=== PATIENT | male | born 1995 | race African-American/Black ===

== ENCOUNTER 2018-10-25 16:05 | Emergency (ER) | payer OTHER ==
[2018-10-25] MEDS ORDERED: CEFAZOLIN SODIUM 1 GM/VIAL ONE (16:19)
[2018-10-25] MEDS ORDERED: CEPHALEXIN 250 MG CAP ONE (16:20)
[2018-10-25] MEDS ORDERED: WATER FOR INJ,STERILE 10 ML ONE (16:20)
--- NOTE | 2018-10-25 16:42 | RAD REPORT ---
EXAM DESCRIPTION: CT - [id number] - 10/25/2018 4:32 pm CLINICAL HISTORY: Trauma, head and neck injury. PAIN COMPARISON: No comparisons TECHNIQUE: Axial 5 mm thick images of the head were obtained. Axial 2 mm thick images of the cervical spine were obtained with sagittal and coronal reconstruction images generated and reviewed. All CT scans are performed using dose optimization technique as appropriate and may include automated exposure control or mA/KV adjustment according to patient size. FINDINGS: CT HEAD WITHOUT CONTRAST: No acute hemorrhage, hydrocephalus or extra-axial collection is identified.No areas of brain edema or midline shift. The paranasal sinuses and mastoids are clear.The calvarium is intact. CT CERVICAL SPINE WITHOUT CONTRAST: No fracture or subluxation.No prevertebral soft tissues swelling is identified. IMPRESSION: No acute intracranial or cervical spine findings.
[2018-10-25] MEDS ORDERED: LIDOCAINE 2% MPF 5 ML VIAL ONE (16:49)
--- NOTE | 2018-10-25 17:39 | ER ---
Nurse's Notes [facility] Name: Emmett Hilario Age: 22 yrs Sex: Male : 1995 Arrival Date: 10/25/2018 Time: 16:06 Bed 5 Private MD: Diagnosis: Laceration without foreign body of left ear;Strain of muscle, fascia and tendon at neck level;Superficial injury of head Presentation: 10/25 16:08 Presenting complaint: EMS states: pt was working out in his long-term cell when the door to sg the cell began closing, trapping his neck in between the door and the door frame. Intermediate cell door is operated manually with a lilli system, pt reports having his neck stuck in the door for several minutes, denied LOC or difficulty breathing, reports pain in the neck and the left shoulder. Care prior to arrival: Cervical collar in place. Mechanism of Injury: entrapment between door frame and door for several minutes. Trauma event details: Injury occurred in the [facility], Injury occurred: in an institution. Injury occurred: October 25, 2018. 16:08 Acuity: FLIP 3 sg 16:08 Method Of Arrival: EMS: [facility] sg 16:45 Presenting complaint: laceration sustained to left side of face, maybe the ear. sg 18:53 Transition of care: patient was not received from another setting of care. Onset of rv symptoms was October 25, 2018 at 16:00. Risk Assessment: Do you want to hurt yourself or someone else? Patient reports no desire to harm self or others. Initial Sepsis Screen: Does the patient meet any 2 criteria? No. Patient's initial sepsis screen is negative. Does the patient have a suspected source of infection? No. Patient's initial sepsis screen is negative. Trauma Activation: Not Applicable Physician: ED Physician; Name: ; Notified At: ; Arrived At: Physician: General Surgeon; Name: ; Notified At: ; Arrived At: Physician: Radiology; Name: ; Notified At: ; Arrived At: Physician: Respiratory; Name: ; Notified At: ; Arrived At: Physician: Lab; Name: ; Notified At: ; Arrived At: Historical: - Allergies: 16:07 No Known Allergies; sg - Home Meds: 16:07 None [Active]; sg - PMHx: 16:07 None; sg - PSHx: 16:07 None; sg - Immunization history: Last tetanus immunization: - up to date. - Social history:: Smoking status: unknown. - Ebola Screening: : No symptoms or risks identified at this time. Screenin:08 Abuse screen: Denies threats or abuse. Denies injuries from another. Tuberculosis sg screening: Never had TB. Risk factors: [facility]. 18:54 Nutritional screening: No deficits noted. Fall Risk None identified. rv Primary Survey: 16:09 NO uncontrolled hemorrhage observed. A: The patient is alert. Airway: patent, No sg supplemental oxygen in use on arrival. Breathing/Chest: Respiratory pattern: regular, Respiratory effort: spontaneous, unlabored, Breath sounds: clear, Chest inspection: symmetrical rise and fall of the chest. Circulation: Cardiac rhythm: sinus rhythm Heart tones present. Pulses: palpable right radial artery and left radial artery. Skin color: pink, Skin temperature: warm, dry. Disability Alert. Exposure/Environment: All clothing and personal items were removed. Forensic evidence collection is not deemed to be indicated at this time. Items placed in patient belonging bag. There is no evidence of uncontrolled external bleeding. Obvious injury(ies) are noted at this time: neck pain, and left shoulder pain A warming method has been applied: A warm blanket has been provided to the patient. 18:53 Reassessment Airway Airway Patent Breathing/Chest Respiratory pattern Regular. rv Secondary Survey: 16:13 HEENT: Head No injury/deformity Face No injury/deformity Eyes: No injury or deformity sg noted. Ears: clear bilaterally. Nose: clear to bilateral nares. Throat: is clear. Gastrointestinal: Abdomen is flat, non-distended. : No signs and/or symptoms were reported regarding the genitourinary system. Musculoskeletal: Circulation, motion, and sensation intact. Range of motion: intact in all extremities, Swelling absent. Assessment: 16:15 General: Appears in no apparent distress. well groomed, well developed, well nourished, sg Behavior is calm, cooperative, appropriate for age. Pain: Complains of pain in neck Quality of pain is described as tender. Neuro: Level of Consciousness is awake, alert, obeys commands, Oriented to person, place, time, Career Guidance Counselor are equal bilaterally Moves all extremities. Full function Speech is normal, Facial symmetry appears normal. Cardiovascular: Patient's skin is warm and dry. Chest pain is denied. Respiratory: Airway is patent Respiratory effort is even, unlabored, Respiratory pattern is regular, symmetrical. GI: Abdomen is flat, non-distended, Reports tolerance of fluids, tolerance of food. : No signs and/or symptoms were reported regarding the genitourinary system. EENT: Ear canal clear on right ear and left ear Nares are clear bilaterally Oral mucosa is moist. Throat is clear. Derm: Skin is pink, warm \T\ dry. Musculoskeletal: Circulation, motion, and sensation intact. C-Collar in place that was applied CAFETERIA OPERATOR by EMS. 16:44 Injury Description: Laceration sustained to left ear lobe and left preauricular area is sg contaminated, superficial, 0.5 to 2.5 cm long, not bleeding, was sustained 30-60 minutes ago. a small amount of bleeding noted at this time. 17:10 Reassessment: Patient appears in no apparent distress at this time. Patient and/or sg family updated on plan of care and expected duration. Pain level reassessed. Patient is alert, oriented x 3, equal unlabored respirations, skin warm/dry/pink. awaiting ERP for laceration repair, awaiting radiology results prior to removal of C-Collar, pt stated understanding, two guards remain at bedside with pt at this time. 17:44 Reassessment: to repair laceration prior to dc to long-term as ordered. sg Vital Signs: 16:08 BP 148 / 94; Pulse 100; Resp 18; Pulse Ox 100% on R/A; sg 16:08 Temp 98.2; sg 17:08 BP 136 / 88; Pulse 87; Resp 17; Pulse Ox 99% on R/A; sg 18:55 BP 133 / 86; Pulse 86; Resp 16; Temp 98; Pulse Ox 100% on R/A; rv Beverly Coma Score: 16:08 Eye Response: spontaneous(4). Verbal Response: oriented(5). Motor Response: obeys sg commands(6). Total: 15. 17:08 Eye Response: spontaneous(4). Verbal Response: oriented(5). Motor Response: obeys sg commands(6). Total: 15. Trauma Score (Adult): 16:08 Eye Response: spontaneous(1); Verbal Response: oriented(1); Motor Response: obeys sg commands(2); Systolic BP: > 89 mm Hg(4); Respiratory Rate: 10 to 29 per min(4); [place] Score: 15; Trauma Score: 12 17:08 Eye Response: spontaneous(1); Verbal Response: oriented(1); Motor Response: obeys sg commands(2); Systolic BP: > 89 mm Hg(4); Respiratory Rate: 10 to 29 per min(4); Beverly Score: 15; Trauma Score: 12 ED Course: 16:06 Patient arrived in ED. sg 16:07 Edgard Sampson MD is Attending Physician. sissy 16:08 Assist provider with laceration repair on left ear lobe using sutures. Set up tray. sg Performed by Edgard Sampson MD Patient tolerated well. 16:13 Triage completed. sg 16:14 Patient has correct armband on for positive identification. Bed in low position. Call sg light in reach. 16:14 Pulse ox on. NIBP on. sg 16:33 CT Head C Spine In Process Unspecified. EDMS 16:35 CT completed. Patient tolerated procedure well. Patient moved back from CT. 16:40 Johny Alejandro, CHARLY is Primary Nurse. rv 17:38 Jacqueline Keyes MD is Referral Physician. sissy 18:54 Patient placed in the treatment room, on a stretcher, on pulse oximetry, Patient rv notified of wait time. 18:54 Patient maintains SpO2 saturation greater than 95% on room air. Thermoregulation: warm rv blanket given to patient. 18:54 Patient did not have IV access during this emergency room visit. rv Administered Medications: 16:41 Drug: Ancef 1 grams Route: IM; Site: right deltoid; rv 17:08 Follow up: Response: No adverse reaction sg 16:41 Drug: KeFLEX 500 mg Route: PO; rv 17:08 Follow up: Response: No adverse reaction sg 16:52 Drug: Lidocaine (2 %) 5 ml {Note: medication administered by .} Volume: 5 sg ml; Route: Infiltration; Intake: 16:08 PO: 0ml; Total: 0ml. sg Outcome: 17:37 Discharge ordered by . sissy 18:53 Discharged to [facility] rv 18:53 Condition: improved 18:53 Discharge instructions given to patient, Instructed on discharge instructions, follow up and referral plans. medication usage, Demonstrated understanding of instructions, follow-up care, medications, Prescriptions given X 2. 18:55 Patient's length of stay in the Emergency Department was greater than 2 hours. rv LACERATION REPAIR.Patient's length of stay extended due to 18:56 Patient left the ED. rv Signatures: Dispatcher [employer] EDMS Mauricio Plummer, RN RN Edgard Shannon MD MD cha Jones, Susan sj Vicente, Ronaldo, RN RN rv
--- NOTE | 2018-10-25 17:39 | EDPHYS ---
Physician Documentation [facility] Name: Emmett Hilario Age: 22 yrs Sex: Male : 1995 Arrival Date: 10/25/2018 Time: 16:06 Bed 5 Private MD: ED Physician Edgard Sampson HPI: 10/25 16:54 This 22 yrs old Black Male presents to ER via EMS with complaints of Neck Injury. sissy 16:54 The patient or guardian complains of pain, that is acute. The symptoms are located. sissy Historical: - Allergies: 16:07 No Known Allergies; sg - Home Meds: 16:07 None [Active]; sg - PMHx: 16:07 None; sg - PSHx: 16:07 None; sg - Immunization history: Last tetanus immunization: - up to date. - Social history:: Smoking status: unknown. - Ebola Screening: : No symptoms or risks identified at this time. ROS: 16:55 Constitutional: Negative for fever, chills, and weight loss, Eyes: Negative for injury, sissy pain, redness, and discharge, ENT: Negative for injury, pain, and discharge, Neck: Negative for injury, pain, and swelling, Cardiovascular: Negative for chest pain, palpitations, and edema, Respiratory: Negative for shortness of breath, cough, wheezing, and pleuritic chest pain, Abdomen/GI: Negative for abdominal pain, nausea, vomiting, diarrhea, and constipation, Back: Negative for injury and pain, : Negative for injury, bleeding, discharge, and swelling, MS/Extremity: Negative for injury and deformity, Neuro: Negative for headache, weakness, numbness, tingling, and seizure, Psych: Negative for depression, anxiety, suicide ideation, homicidal ideation, and hallucinations, Allergy/Immunology: Negative for hives, rash, and allergies, Endocrine: Negative for neck swelling, polydipsia, polyuria, polyphagia, and marked weight changes, Hematologic/Lymphatic: Negative for swollen nodes, abnormal bleeding, and unusual bruising. 16:55 Skin: Positive for laceration(s), of the left ear lobe and left ear. Exam: 16:55 Constitutional: This is a well developed, well nourished patient who is awake, alert, sissy and in no acute distress. Head/Face: Normocephalic, atraumatic. Eyes: Pupils equal round and reactive to light, extra-ocular motions intact. Lids and lashes normal. Conjunctiva and sclera are non-icteric and not injected. Cornea within normal limits. Periorbital areas with no swelling, redness, or edema. Neck: Trachea midline, no thyromegaly or masses palpated, and no cervical lymphadenopathy. Supple, full range of motion without nuchal rigidity, or vertebral point tenderness. No Meningismus. Chest/axilla: Normal chest wall appearance and motion. Nontender with no deformity. No lesions are appreciated. Cardiovascular: Regular rate and rhythm with a normal S1 and S2. No gallops, murmurs, or rubs. Normal PMI, no JVD. No pulse deficits. Respiratory: Lungs have equal breath sounds bilaterally, clear to auscultation and percussion. No rales, rhonchi or wheezes noted. No increased work of breathing, no retractions or nasal flaring. Abdomen/GI: Soft, non-tender, with normal bowel sounds. No distension or tympany. No guarding or rebound. No evidence of tenderness throughout. Back: No spinal tenderness. No costovertebral tenderness. Full range of motion. Male : Normal genitalia with no discharge or lesions. Skin: Warm, dry with normal turgor. Normal color with no rashes, no lesions, and no evidence of cellulitis. MS/ Extremity: Pulses equal, no cyanosis. Neurovascular intact. Full, normal range of motion. Neuro: Awake and alert, GCS 15, oriented to person, place, time, and situation. Cranial nerves II-XII grossly intact. Motor strength 5/5 in all extremities. Sensory grossly intact. Cerebellar exam normal. Normal gait. Psych: Awake, alert, with orientation to person, place and time. Behavior, mood, and affect are within normal limits. 16:55 Skin: injury, laceration(s), the wound is approximately 2.5 cm(s), with a depth of .25 cm(s), of the left ear lobe and left ear. Vital Signs: 16:08 BP 148 / 94; Pulse 100; Resp 18; Pulse Ox 100% on R/A; sg 16:08 Temp 98.2; sg 17:08 BP 136 / 88; Pulse 87; Resp 17; Pulse Ox 99% on R/A; sg 18:55 BP 133 / 86; Pulse 86; Resp 16; Temp 98; Pulse Ox 100% on R/A; rv Beverly Coma Score: 16:08 Eye Response: spontaneous(4). Verbal Response: oriented(5). Motor Response: obeys sg commands(6). Total: 15. 17:08 Eye Response: spontaneous(4). Verbal Response: oriented(5). Motor Response: obeys sg commands(6). Total: 15. Trauma Score (Adult): 16:08 Eye Response: spontaneous(1); Verbal Response: oriented(1); Motor Response: obeys sg commands(2); Systolic BP: > 89 mm Hg(4); Respiratory Rate: 10 to 29 per min(4); Beverly Score: 15; Trauma Score: 12 17:08 Eye Response: spontaneous(1); Verbal Response: oriented(1); Motor Response: obeys sg commands(2); Systolic BP: > 89 mm Hg(4); Respiratory Rate: 10 to 29 per min(4); Beverly Score: 15; Trauma Score: 12 Laceration: 17:36 Wound Repair of 2.5cm ( 1.0in ) subcutaneous laceration to left preauricular area and sissy left ear lobe and left ear. Irregularly shaped.. Skin/tissue flap noted.. Distal neuro/vascular/tendon intact. Anesthesia: Local anesthetic administered with 5 mls of 1% lidocaine. Wound prep: Simple cleansing by me. Skin closed with 5 5-0 Prolene using interrupted sutures and sterile technique. Dressed with Neosporin, pressure dressing, non-adherent dressing. Patient tolerated well. MDM: 16:07 Patient medically screened. [facility] 16:59 Data reviewed: vital signs, nurses notes, radiologic studies, CT scan. [facility] 10/25 16:16 Order name: CT Head C Spine; Complete Time: 17:36 [facility] 10/25 16:16 Order name: Prolene, Sutures; Complete Time: 16:28 [facility] 10/25 16:16 Order name: Dressing - Wound; Complete Time: 16:28 [facility] 10/25 16:16 Order name: Gloves, Sterile; Complete Time: 16:28 [facility] 10/25 16:16 Order name: Setup Suture Tray; Complete Time: 16:28 [facility] Administered Medications: 16:41 Drug: Ancef 1 grams Route: IM; Site: right deltoid; rv 17:08 Follow up: Response: No adverse reaction sg 16:41 Drug: KeFLEX 500 mg Route: PO; rv 17:08 Follow up: Response: No adverse reaction sg 16:52 Drug: Lidocaine (2 %) 5 ml {Note: medication administered by .} Volume: 5 sg ml; Route: Infiltration; Disposition: 10/25/18 17:37 Discharged to Home. Impression: Laceration without foreign body of left ear, Strain of muscle, fascia and tendon at neck level, Superficial injury of head. - Condition is Stable. - Discharge Instructions: Head Injury, Adult, Laceration Care, Adult, Facial Laceration, Laceration Care, Adult, [id number], Facial Laceration, [id number], Head Injury, Adult, [id number]. - Prescriptions for Keflex 500 mg Oral Capsule - take 1 capsule by ORAL route every 6 hours for 10 days; 40 capsule. Tylenol- Codeine #3 300-30 mg Oral Tablet - take 2 tablets by ORAL route every 6 hours As needed; 20 tablet. - Medication Reconciliation Form, Thank You Letter, Antibiotic Education, Prescription Opioid Use form. - Follow up: Private Physician; When: 2 - 3 days; Reason: Recheck today's complaints, Continuance of care, Re-evaluation by your physician. Follow up: Jacqueline Keyes MD; When: 2 - 3 days; Reason: Recheck today's complaints, Continuance of care, Re-evaluation by your physician. - Problem is new. - Symptoms have improved. Signatures: Dispatcher [employer] EDMauricio Esposito RN RN sg Anderson, Corey, MD MD cha Vicente, Ronaldo RN RN rv Corrections: (The following items were deleted from the chart) 17:38 17:37 10/25/2018 17:37 Discharged to Home. Impression: Laceration without foreign body sissy of left ear. Condition is Stable. Forms are Medication Reconciliation Form, Thank You Letter, Antibiotic Education, Prescription Opioid Use. Follow up: Private Physician; When: 2 - 3 days; Reason: Recheck today's complaints, Continuance of care, Re-evaluation by your physician. Problem is new. Symptoms have improved. sissy 17:39 17:38 10/25/2018 17:37 Discharged to Home. Impression: Laceration without foreign body sissy of left ear. Condition is Stable. Discharge Instructions: Head Injury, Adult, Laceration Care, Adult, Facial Laceration, Laceration Care, Adult, [id number], Facial Laceration, [id number], Head Injury, Adult, [id number]. Forms are Medication Reconciliation Form, Thank You Letter, Antibiotic Education, Prescription Opioid Use. Follow up: Private Physician; When: 2 - 3 days; Reason: Recheck today's complaints, Continuance of care, Re-evaluation by your physician. Follow up: Jacqueline Keyes; When: 2 - 3 days; Reason: Recheck today's complaints, Continuance of care, Re-evaluation by your physician. Problem is new. Symptoms have improved. sissy 18:56 17:39 10/25/2018 17:37 Discharged to Home. Impression: Laceration without foreign body rv of left ear; Strain of muscle, fascia and tendon at neck level; Superficial injury of head. Condition is Stable. Discharge Instructions: Head Injury, Adult, Laceration Care, Adult, Facial Laceration, Laceration Care, Adult, [id number], Facial Laceration, [id number], Head Injury, Adult, [id number]. Forms are Medication Reconciliation Form, Thank You Letter, Antibiotic Education, Prescription Opioid Use. Follow up: Private Physician; When: 2 - 3 days; Reason: Recheck today's complaints, Continuance of care, Re-evaluation by your physician. Follow up: Jacqueline Keyes; When: 2 - 3 days; Reason: Recheck today's complaints, Continuance of care, Re-evaluation by your physician. Problem is new. Symptoms have improved. sissy
== END 2018-10-25 18:56 | disposition home or self-care (01) ==
LOC: ER 16:05
PROC: 0HQ3XZZ Repair Left Ear Skin, External Approach (ICD-10-PCS; principal; 2018-10-25)
DX: S01.312A Laceration without foreign body of left ear, initial encounter (principal); S16.1XXA Strain of muscle, fascia and tendon at neck level, initial encounter; W45.8XXA Other foreign body or object entering through skin, initial encounter; Y93.B9 Activity, other involving muscle strengthening exercises; Y92.143 Cell of prison as the place of occurrence of the external cause
CPT/HCPCS: 70450; 72125; 96372; 99285; J0690